=== PATIENT | male | born 1985 | race African-American/Black ===

== ENCOUNTER 2023-12-17 03:15 | Emergency (ER) | payer BC ==
[2023-12-17 03:27] VITALS: RESP 18; BMI 39.0
[2023-12-17 04:37] LABS: CALCIUM 8.8 mg/dL (8.5-10.1)
[2023-12-17 04:38] LABS: BLOOD UREA NITROGEN 19.8 mg/dL (7-18); MAGNESIUM 1.9 mg/dL (1.8-2.4)
[2023-12-17 04:41] LABS: CREATININE 1.2 mg/dL (0.55-1.3)
[2023-12-17 04:42] LABS: BILIRUBIN,TOTAL 0.7 mg/dL (0.2-1)
[2023-12-17 04:43] LABS: TOT PROT 7.6 g/dl (6.4-8.2)
[2023-12-17 04:58] LABS: BASO % 0.3 % (0-2.0); EOS % 5.6 % (0-4.5); HEMATOCRIT 41.7 % (35.4-49); HEMOGLOBIN 15.1 GM/dL (11.7-16.9); LYMPH % 19.3 % (8-40); MCH 31.6 pg (25.7-33.7); MCHC 36.2 g/dl (32.0-35.9); MEAN CELL VOLUME 87.3 fl (80-96); MEAN PLT VOLUME 9.2 fl (7.5-11.1); MONO % 7.9 % (3.8-10.2); NEUT % 66.9 % (42.8-82.8); PLATELET COUNT 223 10^3/uL (134-434); RBC 4.78 M/mm3 (4.00-5.60); RDW 13.5 % (11.9-15.9); WHITE BLOOD COUNT 6.1 K/mm3 (4.0-10.0)
[2023-12-17 05:35] LABS: POTASSIUM 4.1 mmol/L (3.5-5.1)
[2023-12-17 05:37] LABS: BLOOD UREA NITROGEN 17.7 mg/dL (7-18); CALCIUM 8.8 mg/dL (8.5-10.1)
[2023-12-17 05:41] LABS: CREATININE 1.2 mg/dL (0.55-1.3); PHOSPHOROUS 3.5 mg/dL (2.5-4.9)
[2023-12-17 05:45] LABS: N-TERMINAL BNP 13.1 pg/ml (5-125)
[2023-12-17 06:51] VITALS: TEMP 97.6
[2023-12-17 08:52] VITALS: BP 142/89; PULSE 65
== END 2023-12-17 08:52 | disposition home or self-care (01) ==
LOC: JER 03:15
DX: R00.2 Palpitations (principal); R06.02 Shortness of breath; Z20.822 Contact with and (suspected) exposure to COVID-19
CPT/HCPCS: 0241U-QW; 36415; 71046-TC-FY; 71275-TC; 80048; 80053; 83735; 83880; 84100; 84439; 84443; 84484; 85025; 85379; 93005; 93010; 99285-25; Q9967